=== PATIENT | female | born 1995 | race Caucasian/White ===

== ENCOUNTER 2021-03-30 08:30 | Inpatient (IN) | payer MEDICAID ==
[~2021-03-30] VITALS: Ht 170.2 cm; Wt 90.9 kg
[~2021-03-30 08:30] MED LIST: CLEOCIN HC150 MG/CAP PO; CYMBALTA 60MG60 MG PO; INDERAL 20MG20 MG PO; LOVENOX 100100 MG/ML SQ; MACROBID 1100 MG/CAP PO; MACRODANTIN PO; MOTRIN 600600 MG/TAB PO; MOTRIN 800800 MG/TAB PO; NO HOME MEDICATIONS; NORCO 325 MG-51 TAB PO; PERCOCET 325 MG1 TA2 PO; PRENATAL1 TA1; PRILOSEC 20MG20 MG PO; ZOFRAN 4MG T4 MG/TAB PO; ZOFRAN ODT4 MG PO
[2021-03-30 09:52] LABS: BASO % 0.2 % (0.0-2.0); EOS # 0.9 (0.0-0.7); EOS % 9.4 % (0-4.0); GRAN # 6.3 (1.4-6.5); GRAN % 69.7 % (42.2-75.2); HEMATOCRIT 38.3 % (37.0-47.0); HEMOGLOBIN 12.9 g/dl (12.5-16.0); LYMPH # 1.1 (1.2-3.4); LYMPH % 12.1 % (20.0-51.0); MEAN CELL VOLUME 91 fl (80.0-100.0); MEAN CORPUSCULAR HEMOGLOBIN 31 pg (27.0-31.0); MEAN CORPUSCULAR HGB CONC 34 g/dl (33.0-37.0); MONO # 0.8 (0.1-0.6); MONO % 8.3 % (1.7-9.3); PLATELET COUNT 246 K/mm3 (130-400); RED BLOOD COUNT 4.19 M/mm3 (4.10-5.30); REDCELL DISTRIBUTION WIDTH-CV 12.5 % (11.5-14.5)
[2021-03-30 10:05] LABS: ALBUMIN 3.6 gm/dL (3.5-5.0); BILIRUBIN,TOTAL 0.7 mg/dL (0.0-1.0); C-REACTIVE PROTEIN 2.7 mg/dL (0.0-0.9); CALCIUM 8.7 mg/dL (8.4-10.2); CREATININE, serum 0.76 (0.52-1.25); POTASSIUM 3.8 mmol/L (3.4-5.0); TOTAL PROTEIN 6.5 gm/dL (6.4-8.2)
[2021-03-30 10:21] LABS: COLLECTION METHOD CLEAN CATCH
[2021-03-30 10:26] LABS: MUCOUS Present /lpf; PH 6 (5-8); SQUAMOUS EPITHELIAL 0-2 /hpf; URINE APPEARANCE Clear; URINE BACTERIA None Seen /hpf; URINE BILIRUBIN Negative (NEGATIVE); URINE BLOOD Negative (NEGATIVE); URINE COLOR Yellow; URINE GLUCOSE Negative (NEGATIVE); URINE KETONE Negative (NEGATIVE); URINE LEUKOCYTE ESTERASE Negative (NEGATIVE); URINE NITRATE Negative (NEGATIVE); URINE PROTEIN(semi-quant) Negative (NEGATIVE); URINE RBC 0-2 /hpf; URINE UROBILINOGEN Negative (NEGATIVE)
[2021-03-30] MEDS ORDERED: NEURONTIN600 MG/TAB PO (11:46)
[2021-03-30] MEDS ORDERED: SAVELLA50 MG PO (11:47)
[2021-03-30] MEDS ORDERED: ZOFRAN ODT4 MG PO (11:48)
[2021-03-30] MEDS ORDERED: PERCOCET 325 MG1 TA2 PO (11:49)
[2021-03-30] MEDS ORDERED: PROVENTIL0.09 MG/A1 IH (11:50)
[2021-03-30] MEDS ORDERED: GRALISE600 MG PO (11:51)
--- NOTE | 2021-03-30 12:43 | NUR ---
Report recieved from LAWRENCE Ragsdale.
[2021-03-30 13:36] VITALS: BP 128/75; PULSE 61; TEMP 98.8
--- NOTE | 2021-03-30 14:42 | NUR ---
PRN dilaudid given for aching/sharp abdominal pain rated an 7/10. PRN Zofran given.
--- NOTE | 2021-03-30 14:49 | NUR ---
Patient admitted from the ED for abdominal pain. Upon initial assessment normal S1 and S2 sounds present, radial and pedal pulses +2 bilaterally, lungs clear to auscultation, bowel sounds present in all four quadrants, patient A&O. Patient C/O aching/sharp abdominal pain that radiates to her back. Rates it an 04/16. Admission paperwork completed. Allergies and pharmacy reviewed. Med Rec completed in ED. Patient denies any futher needs at this time. Will continue to monitor. Call light in reach.
[2021-03-30 16:00] VITALS: BP 139/70; PULSE 62; TEMP 99.1
--- NOTE | 2021-03-30 17:53 | NUR ---
Patient given PRN dilaudid at 1644for cramping/sharp abd pain rated a 10/10. Patient called at 1731 stating that she was in unbearable pain. Upon entering the room the room patient was in the position with a pillow held tight to her abdomen. Dilaudid given again per orders. Dr. Galdamez informed, verbal order recieved for an increase in dose for dilaudid. Will continue to closely monitor patient. Call light in reach. Fluids running as ordered.
[2021-03-30 19:17] VITALS: BP 132/77; PULSE 66; TEMP 98.8
--- NOTE | 2021-03-30 21:49 | NUR ---
Pt stated she was still in pain.1 mg of dilaudid was given. pt is currently asleep. Will continue to monitor.
[2021-03-31 00:13] VITALS: BP 127/75; PULSE 53; TEMP 98.6
[2021-03-31 03:08] VITALS: BP 123/66; PULSE 65; TEMP 98.9
[2021-03-31 06:21] LABS: BASO % 0.2 % (0.0-2.0); EOS # 0.9 (0.0-0.7); EOS % 10.8 % (0-4.0); GRAN # 5.1 (1.4-6.5); GRAN % 60.1 % (42.2-75.2); LYMPH # 1.7 (1.2-3.4); MEAN CELL VOLUME 90 fl (80.0-100.0); MEAN CORPUSCULAR HEMOGLOBIN 31 pg (27.0-31.0); MEAN CORPUSCULAR HGB CONC 34 g/dl (33.0-37.0); MEAN PLATELET VOLUME 9.2 fl (7.4-10.4); MONO # 0.7 (0.1-0.6); MONO % 8.7 % (1.7-9.3); PLATELET COUNT 203 K/mm3 (130-400); RED BLOOD COUNT 3.92 M/mm3 (4.10-5.30); REDCELL DISTRIBUTION WIDTH-CV 12.2 % (11.5-14.5)
[2021-03-31 06:30] LABS: HEMATOCRIT 35.1 % (37.0-47.0)
[2021-03-31 06:39] LABS: CALCIUM 8.6 mg/dL (8.4-10.2); CREATININE, serum 0.74 (0.52-1.25); POTASSIUM 3.5 mmol/L (3.4-5.0)
--- NOTE | 2021-03-31 06:56 | NUR ---
appears to be dozing and awakens easily, bedside shift report received from LAWRENCE Lind
--- NOTE | 2021-03-31 08:39 | NUR ---
appears to be sleeping, in bed with lights off, eyes closed, resp quiet and easy
[2021-03-31 08:53] VITALS: PULSE 68; TEMP 98
--- NOTE | 2021-03-31 09:00 | NUR ---
awake and c/o pain8/10 and nausea, medicated with dilaudid 1mg slow IV and Zofran 4mg slow IV, full assessment completed, see interventions for further info, provided toothbrush and toothpaste as she is independent in room, offered shower and she will let this nrse know when she is ready, will have some clear liquids now
--- NOTE | 2021-03-31 10:18 | NUR ---
Dr Mendez in to see patient
--- NOTE | 2021-03-31 10:59 | NUR ---
ALLEGRA completed intake with patient. Patient states that she lives in [place]. Point of contact is her father Eric [phone]. Patient states that she does not utilize DME and is independent with ADL's. Patient provides that her PCP is Dr. Johnson, pharmacy is [facility], and she is able to afford her medications. Patient states that she does not have anyone appointed as her DPOA-HC and does not wish to appoint anyone at this time. Patient states that her plan is to return to her home upon DC and has no concerns with doing so. SW will continue to follow. DC Plan: Home
--- NOTE | 2021-03-31 10:59 | NUR ---
awake sitting up in bed and again c/o abdominal pain 04/16, medicated with dilaudid 1mg slow IV
--- NOTE | 2021-03-31 12:15 | NUR ---
resting in bed, did not verbalize pain or discomfort but expression indicates continues to have discomfort
[2021-03-31 12:21] VITALS: BP 126/75; PULSE 61; TEMP 97.9
--- NOTE | 2021-03-31 13:10 | NUR ---
c/o abdominal pain, medicated with dialudid 1mg slow IV, offered shower and thinks if family comes in a bit she will be ready then
[2021-03-31 14:31] LABS: CLOSTRIDIUM DIFF A/B NEG; CLOSTRIDIUM DIFF A/B INTERP NonToxigenic C.diff
--- NOTE | 2021-03-31 15:00 | NUR ---
continues to c/o headache and abdominal pain, requesting some mashed potatoes to see if food helps her headache, Dr Tompkins notifed, new medication ordered to help with headache,
--- NOTE | 2021-03-31 15:15 | NUR ---
medicated with toradol 15mg slow IV and zfran 4mg slow IV for nausea, mom here and patient is ready to get a shower, assisted up and into shower
--- NOTE | 2021-03-31 15:45 | NUR ---
out of shower and tolerated well, into bed and lights off to rest
--- NOTE | 2021-03-31 16:15 | NUR ---
resting in bed with lights off, states toradol did not help with headache or abdominal pain and is requesting dilaudid, will notify Dr Tompkins
--- NOTE | 2021-03-31 16:27 | NUR ---
called and left message for Dr Tompkins to call this nurse
[2021-03-31 16:55] VITALS: BP 148/73; PULSE 67; TEMP 97.9
--- NOTE | 2021-03-31 16:58 | NUR ---
Dr Tompkins was in and saw patient and her mom, continues to c/o pain to abdomen and head, medicated with dilaudid 2mg slow IV
--- NOTE | 2021-03-31 17:17 | NUR ---
talking on phone with a smile on her face, states pain is now down to 3/10
--- NOTE | 2021-03-31 17:35 | NUR ---
sitting up on side of bed having broth
--- NOTE | 2021-03-31 18:51 | NUR ---
bedside shift report given to LAWRENCE Lind
[2021-03-31 21:27] VITALS: BP 119/83; PULSE 68; TEMP 97.8
--- NOTE | 2021-03-31 22:48 | NUR ---
Pt is still in pain. Pain rated 8/10. Vss. Will continue to monitor.
[2021-04-01 07:06] VITALS: BP 131/79; PULSE 76; TEMP 98.2
[2021-04-01 07:09] LABS: CALCIUM 8.4 mg/dL (8.4-10.2); CREATININE, serum 0.71 (0.52-1.25); POTASSIUM 3.4 mmol/L (3.4-5.0)
--- NOTE | 2021-04-01 10:16 | NUR ---
Initial visit; Patient thanked Auto Glass Technician for looking in on her and offering God's blessings.
[2021-04-01 11:08] VITALS: BP 119/70; PULSE 58; TEMP 98.2
[2021-04-01 16:02] VITALS: BP 132/67; PULSE 71; TEMP 98.7
--- NOTE | 2021-04-01 18:40 | NUR ---
Patient has beeing with constant pain along the day. She asks for pain medication constantly. She is NPO, just sipping water for meds. Some nausea was reported at 1800, zofran was provided. IV is leaking, fluids were sttoped and Iv is going to be restarted by Lore BRAVO.
--- NOTE | 2021-04-01 21:00 | NUR ---
Initial shift assessment done- states Dilaudid is helping the abd pain, pain at this time 12/15--denies need for the pain pill, also not wanting to take her HS meds at this time-- does not want to get nauseated--- understands Dilaudid next due around 2330- pt states that is ok, Iv fluids of LR at 100cc/hr, states only has had 2 liquid stools today-- in contact isolation
[2021-04-01 23:37] VITALS: BP 137/86; PULSE 64; TEMP 98.3
[2021-04-02 03:51] VITALS: BP 129/82; PULSE 91; TEMP 97.5
--- NOTE | 2021-04-02 05:10 | NUR ---
Was medicated with Dilaudid IV x2 this shift-- states overall her abd pain is a little better--is going to try the Percocet for the next time,, Is going to try the SCD,s at this time- remains NPO
[2021-04-02 07:21] LABS: HEMATOCRIT 37.4 % (37.0-47.0); HEMOGLOBIN 13.1 g/dl (12.5-16.0); MEAN CELL VOLUME 89 fl (80.0-100.0); MEAN CORPUSCULAR HEMOGLOBIN 31 pg (27.0-31.0); MEAN CORPUSCULAR HGB CONC 35 g/dl (33.0-37.0); MEAN PLATELET VOLUME 9.7 fl (7.4-10.4); PLATELET COUNT 259 K/mm3 (130-400); RED BLOOD COUNT 4.19 M/mm3 (4.10-5.30)
[2021-04-02 07:33] LABS: CALCIUM 8.6 mg/dL (8.4-10.2); CREATININE, serum 0.8 (0.52-1.25); MAGNESIUM 1.9 mg/dL (1.6-2.3); POTASSIUM 3.1 mmol/L (3.4-5.0)
[2021-04-02 07:51] VITALS: BP 124/80; PULSE 68; TEMP 97.8
[2021-04-02 11:40] VITALS: BP 110/61; PULSE 84; TEMP 97.9
[2021-04-02 16:35] VITALS: BP 120/70; PULSE 73; TEMP 98.2
--- NOTE | 2021-04-02 18:30 | NUR ---
Patient seems to be doing better today. No loose stools. Her IV infiltrated this afternoon, we could not get a new IV site. Notified [facility] and they switched her medications to PO and said to leave the IV out. Explained this to the patient. Her dilauded was also switched to PO, patient seems to be tolerating it well. Had some nausea this evening but otherwise no complaints of nausea. She got most of her potassium IV, the last 20meq was a pill. No other changes at this time. Call light within reach.
--- NOTE | 2021-04-02 20:00 | NUR ---
Initial shift assessment done, states tolerating her food without nausea today- no stools today- states abd pain 01/14,, will give Percocet as ordered at this time,, no other requests.
[2021-04-02 20:17] VITALS: BP 117/55; BP 97/51; PULSE 94; TEMP 98.3
[2021-04-03 00:12] VITALS: BP 109/55; PULSE 66; TEMP 98.8
[2021-04-03 04:25] VITALS: BP 120/68; PULSE 80; TEMP 98.2
--- NOTE | 2021-04-03 05:53 | NUR ---
Did sleep well last night-- was given Percocet twice during the shift and the p.o Dilaudid just once this shift. Has been tolerating food/fluids
[2021-04-03 06:57] LABS: BASO % 0.3 % (0.0-2.0); EOS # 1.1 (0.0-0.7); EOS % 16.4 % (0-4.0); GRAN # 3.1 (1.4-6.5); HEMATOCRIT 40.4 % (37.0-47.0); HEMOGLOBIN 13.6 g/dl (12.5-16.0); LYMPH # 1.8 (1.2-3.4); LYMPH % 26.8 % (20.0-51.0); MEAN CELL VOLUME 91 fl (80.0-100.0); MEAN CORPUSCULAR HEMOGLOBIN 31 pg (27.0-31.0); MEAN CORPUSCULAR HGB CONC 34 g/dl (33.0-37.0); MONO # 0.8 (0.1-0.6); MONO % 11.4 % (1.7-9.3); PLATELET COUNT 282 K/mm3 (130-400); RED BLOOD COUNT 4.43 M/mm3 (4.10-5.30); REDCELL DISTRIBUTION WIDTH-CV 12.3 % (11.5-14.5)
[2021-04-03 07:20] LABS: CALCIUM 8.9 mg/dL (8.4-10.2); CREATININE, serum 0.9 (0.52-1.25); POTASSIUM 4.6 mmol/L (3.4-5.0)
[2021-04-03 07:46] VITALS: BP 121/65; PULSE 59; TEMP 98.2
[2021-04-03] MEDS ORDERED: VANCOCIN H125 MG/CAP PO (08:54)
[2021-04-03] MEDS ORDERED: BENTYL 20MG20 MG/TAB PO (08:54)
[2021-04-03] MEDS ORDERED: PROTONIX 40MG T40 MG PO (08:57)
[2021-04-03] MEDS ORDERED: PERCOCET 325 MG1 TA2 PO (08:57)
[2021-04-03] MEDS ORDERED: DILAUDID 2MG TAB2 MG PO (08:57)
--- NOTE | 2021-04-03 10:50 | NUR ---
Patient is discharging home. Discharging instructions discussed with patient. No questions verbalized. No IV access. Explained when follow up is. 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 She asked for a work release, explained it's in the chart. Copies of discharge instructions sent with patient. No questions verbalized. Patient walked out via wheel chair by Naila GHOTRA.
== END 2021-04-03 10:50 | disposition home or self-care (01) | DRG 372 ==
LOC: COL.ER 08:30 → SURG 11:43
PROVIDERS: Family Medicine; Internal Medicine; Physician Assistant; Student in an Organized Health Care Education/Training Program; ADMIT Internal Medicine
DX: A04.72 Enterocolitis due to Clostridium difficile, not specified as recurrent (principal); F11.20 Opioid dependence, uncomplicated; E87.6 Hypokalemia; J45.909 Unspecified asthma, uncomplicated; K58.9 Irritable bowel syndrome, unspecified; M79.7 Fibromyalgia; G89.29 Other chronic pain; Z86.718 Personal history of other venous thrombosis and embolism; G43.909 Migraine, unspecified, not intractable, without status migrainosus; E16.2 Hypoglycemia, unspecified
CPT/HCPCS: 99222-AI; 99231-AI; 99239; J0744; J1170; J1885; J2270; J2405; J3475; J3480; J7120

== ENCOUNTER 2021-07-03 09:16 | Emergency (ER) | payer MEDICAID ==
[~2021-07-03] VITALS: Ht 170.2 cm; Wt 90.9 kg
[~2021-07-03 09:16] MED LIST changes: +BENTYL 20MG20 MG/TAB PO; +DILAUDID 2MG TAB2 MG PO; +GRALISE600 MG PO; +NEURONTIN600 MG/TAB PO; +PROTONIX 40MG T40 MG PO; +PROVENTIL0.09 MG/A1 IH; +SAVELLA50 MG PO; +VANCOCIN H125 MG/CAP PO
[2021-07-03 09:24] VITALS: TEMP 98
[2021-07-03 10:42] LABS: COLLECTION METHOD CLEAN CATCH
[2021-07-03 10:54] LABS: MUCOUS Present /lpf; PH 7 (5-8); SQUAMOUS EPITHELIAL 0-2 /hpf; URINE APPEARANCE Clear; URINE BACTERIA None Seen /hpf; URINE BILIRUBIN Negative (NEGATIVE); URINE BLOOD 3+ (NEGATIVE); URINE COLOR Yellow; URINE GLUCOSE Negative (NEGATIVE); URINE KETONE Negative (NEGATIVE); URINE LEUKOCYTE ESTERASE Negative (NEGATIVE); URINE NITRATE Negative (NEGATIVE); URINE PROTEIN(semi-quant) Negative (NEGATIVE); URINE UROBILINOGEN Negative (NEGATIVE)
[2021-07-03 11:12] VITALS: BP 110/64; PULSE 75
== END 2021-07-03 11:12 | disposition home or self-care (01) ==
LOC: COL.ER 09:16
PROVIDERS: Student in an Organized Health Care Education/Training Program
DX: G43.909 Migraine, unspecified, not intractable, without status migrainosus (principal); J45.909 Unspecified asthma, uncomplicated; F17.210 Nicotine dependence, cigarettes, uncomplicated; Z79.899 Other long term (current) drug therapy
CPT/HCPCS: J0780; J1885; J2270; J7030

== ENCOUNTER 2022-02-23 14:37 | Emergency (ER) | payer MEDICAID ==
[~2022-02-23] VITALS: Ht 170.2 cm; Wt 90.9 kg
[2022-02-23 14:47] VITALS: TEMP 97.3
[2022-02-23 15:32] LABS: BASO % 0.2 % (0.0-2.0); EOS % 0.5 % (0.0-4.0); GRAN % 77.3 % (42.2-75.2); HEMATOCRIT 42.8 % (37.0-47.0); HEMOGLOBIN 14.1 g/dl (12.5-16.0); MEAN CELL VOLUME 92 fl (80.0-100.0); MEAN CORPUSCULAR HEMOGLOBIN 30 pg (27-31); MEAN CORPUSCULAR HGB CONC 33 g/dl (33.0-37.0); MEAN PLATELET VOLUME 9.2 fl (7.4-10.4); MONO # 0.4 K/mm3 (0.1-0.6); MONO % 6.8 % (1.7-9.3); PLATELET COUNT 250 K/mm3 (130-400); RED BLOOD COUNT 4.66 M/mm3 (4.10-5.30); REDCELL DISTRIBUTION WIDTH-CV 12.4 % (11.5-14.5)
[2022-02-23 15:48] LABS: ALBUMIN 4.1 gm/dL (3.5-5.0); BILIRUBIN,TOTAL 1.2 mg/dL (0.2-1.2); CALCIUM 9.2 mg/dL (8.4-10.2); CREATININE, serum 0.82 mg/dL (0.57-1.11); POTASSIUM 4.1 mmol/L (3.5-4.5); TOTAL PROTEIN 7.4 gm/dL (6.2-8.1)
[2022-02-23] MEDS ORDERED: NORCO 325 MG-51 TAB PO ×3 (16:51→17:07)
[2022-02-23] MEDS ORDERED: ZOFRAN ODT4 MG PO ×3 (16:51→17:07)
[2022-02-23 17:04] VITALS: BP 121/82; PULSE 85
== END 2022-02-23 17:08 | disposition home or self-care (01) ==
LOC: COL.ER 14:37
PROVIDERS: Personal Emergency Response Attendant
DX: R10.30 Lower abdominal pain, unspecified (principal); R19.7 Diarrhea, unspecified; F17.210 Nicotine dependence, cigarettes, uncomplicated; Z32.02 Encounter for pregnancy test, result negative; Z28.310 Unvaccinated for COVID-19
CPT/HCPCS: J2270; J2405; J7030; Q9967

== ENCOUNTER 2022-02-24 22:34 | Emergency (ER) | payer MEDICAID ==
[~2022-02-24] VITALS: Ht 170.2 cm; Wt 86.4 kg
[2022-02-24 22:40] VITALS: TEMP 98.4
[2022-02-25 00:41] LABS: COLLECTION METHOD CLEAN CATCH
[2022-02-25 00:52] LABS: MUCOUS Present (NOT PRESENT); PH 5 (5-8); URINE APPEARANCE Hazy (CLEAR/HAZY); URINE BACTERIA None Seen /hpf (NONE SEEN); URINE BILIRUBIN Negative (NEGATIVE); URINE BLOOD 3+ (NEGATIVE); URINE COLOR Yellow (YELLOW); URINE GLUCOSE Negative (NEGATIVE); URINE KETONE Negative (NEGATIVE); URINE LEUKOCYTE ESTERASE Trace (NEGATIVE); URINE NITRATE Negative (NEGATIVE); URINE PROTEIN(semi-quant) Negative (NEGATIVE); URINE UROBILINOGEN Negative (NEGATIVE)
[2022-02-25] MEDS ORDERED: PROTONIX 40MG T40 MG PO (01:23)
[2022-02-25] MEDS ORDERED: CARAFATE 1GM1 G PO (01:23)
[2022-02-25] MEDS ORDERED: CEFTIN500 MG PO (01:26)
[2022-02-25 02:08] LABS: TRICYCLIC ANTIDEPRESS URINE NEGATIVE
[2022-02-25 02:52] VITALS: BP 124/78; PULSE 76
== END 2022-02-25 02:52 | disposition home or self-care (01) ==
LOC: COL.ER 22:34
PROVIDERS: Emergency Medicine; Physician Assistant
DX: N39.0 Urinary tract infection, site not specified (principal); Z87.11 Personal history of peptic ulcer disease; Z28.310 Unvaccinated for COVID-19
CPT/HCPCS: J0780; J1630; J7030